=== PATIENT | male | born 1965 | race Caucasian/White ===

== ENCOUNTER → 2018-08-28 | Outpatient (CLI) | payer BC ==
[~2018-08-28] MED LIST: ASPI325T8 PO; CILO100T PO; IOHEXOL 180 MG/ML 10 ML VIAL. ONE; OLME1TAB21 PO; SIMV20TA3 PO; methylPREDNISolone ACETATE 40 MG/ML VIAL. ONE; methylPREDNISolone ACETATE 80 MG/ML VIAL. ONE
--- NOTE | 2018-08-29 00:56 | PAIN ---
DATE OF SERVICE: 08/28/2018 PROGRESS NOTE FOR PAIN CLINIC DIAGNOSES: Thoracic radiculopathy with thoracic degenerative disk disease and thoracic herniated disk. HISTORY OF PRESENT ILLNESS: The patient is a 52-year-old male who returns for followup status post initial evaluation and prescheduling for a thoracic epidural steroid injection. The patient returns today reporting still significant pain in the mid back radiating to the right side as it was previously in the right flank and lower rib cage to the abdomen anteriorly. The patient reports it is worse with activity, worse with standing, walking, changing positions, generally better with sitting or lying down, does not generally wake him from sleep at night. The patient has stopped wearing his brace on his back and actually has decreased the pain to some extent. The patient reports no new motor or sensory deficits. The patient rates her pain over the past week and is a 6 on a scale 10 at its worst, 5 on average, 4 at its least and is a 4 today. The patient reports it is sharp, shooting, stabbing, on and off in intensity with activity. The patient reports no new motor or sensory deficits and no bowel or bladder incontinence. PHYSICAL EXAMINATION: VITAL SIGNS: The patient's blood pressure 120/75, pulse 88, respirations are 18, temperature 98.1 degrees Fahrenheit. Height 5 feet 4 inches and weight is 151 pounds. GENERAL: The patient is awake, alert, oriented, appropriate and very pleasant demeanor. HEENT: Head shows normocephalic and atraumatic. Extraocular movements are intact and symmetrical. Oral cavity: Mucous membranes are moist and pink. Dentition is intact. NECK: Shows anterior throat supple without palpable lymphadenopathy noted. Swallow reflex is symmetrical. CHEST: Shows normal with inspection. Breath sounds clear to auscultation bilaterally. HEART: Shows S1 and S2 clear. No murmurs auscultated. ABDOMEN: Soft, nontender and nondistended. No palpable organomegaly is noted. No rebound or guarding demonstrated. BACK: Shows spine grossly in the midline. Normal-appearing thoracic kyphosis and lumbar lordotic curvature. Thoracic paraspinous musculature shows symmetrical on inspection, with palpation shows some moderate tenderness in the lower distribution of the paraspinous muscles, slightly more on the right than the left but symmetrical without evidence of atrophy, hypertrophy. No trigger points and no tenderness over the spinous processes themselves. The patient has good rotational motion of the thoracic spine, both laterally as well as extension and flexion. EXTREMITIES: The patient's lower extremities show deep tendon reflexes 2+ in the patellar, 1+ tendo-calcaneus tendons. Motor exam is strong with 5/5 dorsiflexion, extension, quadriceps and hamstring flexion and symmetrical. Peripheral pulses are 1+ posterior tibia. No peripheral edema is noted. Options were discussed with the patient. The patient's old chart was reviewed as well as his current medication regimen updated. Current review of systems updated today as well. We will proceed with a thoracic epidural steroid injection today with fluoroscopic guidance. Risks were again discussed including, but not limited to bleeding, infection, possibility of epidural hematoma, subsequent neurologic compromise, dural puncture, headache, spinal cord and/or nerve damage, side effects of steroid medication and poor results regarding pain control. The patient understands and wished to proceed. The patient will return to the clinic in approximately 2 weeks for followup, was counseled as to return appointment, activity level and side effects to be aware of. DIAGNOSES: Thoracic radiculopathy with thoracic degenerative disk disease and thoracic herniated disk. PROCEDURE: Thoracic epidural steroid injection, translaminar approach at T11-T12 using C-arm fluoroscopic guidance under sterile prep and drape using local anesthetic. MEDICATION INJECTED: A total of 120 mg Depo-Medrol plus 10 mL of preservative-free normal saline and 2 mL of contrast. CONDITION AT DISCHARGE: Stable. The patient tolerated the procedure well and had no complications. RENETTA STEVENSON MD DR: RODO/romario JOB#: [id number] / [id number]
== END ==
LOC: PNCL 11:22
PROVIDERS: ATTEND Anesthesiology
DX: M51.14 Intervertebral disc disorders with radiculopathy, thoracic region (principal); M54.9 Dorsalgia, unspecified
CPT/HCPCS: 62321; J1030; J1040; Q9965

== ENCOUNTER → 2018-09-17 | Outpatient (CLI) | payer BC ==
[~2018-09-17] MED LIST changes: -IOHEXOL 180 MG/ML 10 ML VIAL. ONE; -methylPREDNISolone ACETATE 40 MG/ML VIAL. ONE; -methylPREDNISolone ACETATE 80 MG/ML VIAL. ONE
--- NOTE | 2018-09-17 22:18 | PAIN ---
DATE OF SERVICE: 09/17/2018 PROGRESS NOTE FOR PAIN CLINIC DIAGNOSES: Thoracic radiculopathy with thoracic degenerative disk disease and thoracic herniated disk. HISTORY OF PRESENT ILLNESS: The patient is a 52-year-old male who returns for followup status post thoracic epidural steroid injection x 1. The patient reports about 95% improvement. It has been about 3 weeks since his injection. The patient reports he has been increasing his activity with greater ease and comfort, working with greater ease and comfort, walking greater distances, doing household activities, traveling with much greater ease and comfort, especially riding his truck, which was severely exacerbating the pain initially. The patient reports it does not awaken him from sleep at night. Reports his pain at the worst is a 2 on a scale of 10, on average worst and 1 at its least in the past week. The patient reports it is aching and stabbing, sometimes it is radiating to the right side, on and off in intensity though and he can generally get it to go away by just repositioning his back. The patient reports he is very pleased with his progress thus far and has no new motor or sensory deficits or other complaints. PHYSICAL EXAMINATION: VITAL SIGNS: The patient's blood pressure is 114/66, pulse 88, respirations 18, temperature 98.4 degrees Fahrenheit, height 5 feet 7 inches, weight 151 pounds. GENERAL: The patient is awake, alert, oriented, appropriate, very pleasant demeanor. HEENT: Shows normocephalic, atraumatic. Extraocular movements are intact and symmetrical. Oral cavity, mucous membranes are moist and pink. Dentition is intact. NECK: Shows anterior throat supple without palpable lymphadenopathy noted. Swallow reflex symmetrical. CHEST: Shows normal with inspection. Breath sounds are clear to auscultation bilaterally. HEART: Shows S1, S2 clear. No murmurs auscultated. ABDOMEN: Soft, nontender, nondistended. BACK: Shows spine grossly in the midline. Thoracic spine shows normal thoracic kyphotic curvature, some mild tenderness in the inferior aspect of the thoracic paraspinous musculature, more on the right than the left, but again symmetrical without evidence of atrophy or hypertrophy. The patient has good rotational motion both laterally as well as extension and flexion without exacerbation of pain in thoracic spine. EXTREMITIES: The patient's upper extremities show deep tendon reflexes at 2+ in the biceps and triceps tendons. 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 Lower extremities show deep tendon reflexes 2+ in the patellar tendons. Motor exam is strong with 5/5 dorsiflexion and extension and equal. Options were discussed with the patient. The patient's old chart was reviewed as his current medication regimen updated. Current review of systems updated today as well. We will hold on any further injections at this time as the patient is doing quite a bit better. We encouraged him to increase his activity as tolerated. The patient will continue with his stretching exercises as well daily and will follow up at this time on as needed basis. RENETTA STEVENSON MD DR: RODO/romario JOB#: [id number] / [id number]
== END | disposition home or self-care (01) ==
LOC: PNCL 14:39
PROVIDERS: ATTEND Anesthesiology
DX: M51.14 Intervertebral disc disorders with radiculopathy, thoracic region (principal); M40.294 Other kyphosis, thoracic region
CPT/HCPCS: G0463